=== PATIENT | female | born 1975 | race Two or more races ===

== ENCOUNTER 2022-12-07 20:34 | Emergency (ER) | payer OTHER ==
[~2022-12-07] VITALS: Ht 165.1 cm; Wt 62.6 kg
== END 2022-12-07 21:50 | disposition home or self-care (01) ==
LOC: ER 20:34
DX: S31.822A Laceration with foreign body of left buttock, initial encounter (principal); W18.12XA Fall from or off toilet with subsequent striking against object, initial encounter; Y93.F1 Activity, caregiving, bathing; Y92.012 Bathroom of single-family (private) house as the place of occurrence of the external cause